=== PATIENT | female | born 1950 | race Asian ===

== ENCOUNTER 2016-08-23 12:34 | Emergency (ER) | payer MEDICARE, OTHER ==
[~2016-08-23] VITALS: Ht 157.5 cm; Wt 54.5 kg
[~2016-08-23 12:34] MED LIST: ALBU8.5H IH; AMLO5TAB66 PO; ASPI-556 PO; BECL8.7A5 IH; BENZ-26 PO; CIP250 PO; GLIP5TAB11 PO; GUAI600T PO; IPRAHFA IH; LORA5SOL46 PO; METF10002 PO; OMEP20 PO; PRAV20TA PO; PRED10TA3 PO; PRED20TA3 PO; PRED5TAB PO
[2016-08-23 12:47] LABS: GLUCOSE,POINT OF CARE 221 MG/DL (70-110)
[2016-08-23] MEDS ORDERED: MECLIZINE HCL 25 MG TABLET PO ONE (13:45)
[2016-08-23 14:00] LABS: BASOPHILS # (AUTO) 0.04 K/uL (0.00-0.20); BASOPHILS % (AUTO) 0.5 % (0.0-2.0); EOSINOPHILS # (AUTO) 0.13 K/uL (0.00-0.70); EOSINOPHILS % (AUTO) 1.66 % (1.0-6.0); HEMATOCRIT 41.3 % (36-46); HEMOGLOBIN 13.7 g/dL (12.0-16.0); LYMPHOCYTES # (AUTO) 2.9 K/uL (1.0-4.8); LYMPHOCYTES % (AUTO) 35.2 % (22.0-44.0); MEAN CORPUSCULAR HEMOGLOBIN 30.9 pg (26.0-34.0); MEAN CORPUSCULAR HGB CONC 33.2 G/dL (31.0-37.0); MEAN CORPUSCULAR VOLUME 93 fL (80-100); MONOCYTES # (AUTO) 0.6 K/uL (0.1-1.0); MONOCYTES % (AUTO) 7.3 % (2.0-9.0); NEUTROPHILS # (AUTO) 4.5 K/uL (1.8-7.7); NEUTROPHILS % (AUTO) 55.5 % (40.0-70.0); PLATELET COUNT (AUTO) 250 K/uL (150-450); RED BLOOD CELL COUNT(AUTO) 4.45 MIL/uL (4.00-5.20); WHITE BLOOD COUNT (AUTO) 8.1 K/uL (4.5-11.0)
[2016-08-23 14:12] LABS: ANION GAP 9 mmol/L (8-16); CARBON DIOXIDE 29 mmol/L (22-29); CHLORIDE 97 mmol/L (98-107); GLOMERULAR FILTR. RATE CALC 41 mL/min (>60); POTASSIUM 3.7 mmol/L (3.5-5.1); SODIUM SERUM 135 mmol/L (136-145); UREA NITROGEN, BLOOD 22 mg/dL (7-18)
[2016-08-23 14:30] LABS: B-TYPE NATRIURETIC PEPTIDE 19 pg/mL (0-100)
[2016-08-23 14:38] LABS: ALANINE AMINOTRANSFERASE 57 U/L (12-78); ALBUMIN 4.2 g/dL (3.4-5.0); ASPARTATE AMINOTRANSFERASE 44 U/L (15-37); BILIRUBIN,TOTAL 0.7 mg/dL (0.1-1.0); CREATINE KINASE MB 0.7 ng/mL (0-5); CREATINE KINASE, TOTAL 93 U/L (26-192); TOTAL PROTEIN, SERUM 7.9 g/dL (6.4-8.2)
[2016-08-23 14:42] LABS: PROTHROMBIN TIME 10.8 SEC (9.4-11.6)
[2016-08-23] MEDS ORDERED: SODIUM CHLORIDE 0.9% 1,000 ML IV ONE (14:45)
[2016-08-23] MEDS ORDERED: LORA10TA7 PO (14:48)
[2016-08-23 15:55] LABS: APPEARANCE,URINE CLEAR (CLEAR); GLUCOSE, URINE (UA) 100 mg/dL (NEGATIVE); KETONES,URINE NEGATIVE (NEGATIVE); LEUKOCYTE ESTERASE ,URINE SMALL (NEGATIVE); OCCULT BLOOD,URINE NEGATIVE (NEGATIVE); PROTEIN,URINE NEGATIVE (NEGATIVE)
[2016-08-23 16:05] LABS: ADD UA MICROSCOPIC YES
[2016-08-23 16:31] LABS: SQUAMOUS EPITHELIAL CELL,UR Few /LPF (None Seen)
[2016-08-23 16:34] LABS: RBC,URINE 0-2 /HPF (0-2); TRANSITIONAL EPI CELLS,URINE Few /LPF (None Seen)
[2016-08-23 17:12] VITALS: BP 122/61
== END 2016-08-23 17:16 | disposition home or self-care (01) ==
LOC: EMS 12:36
DX: R42 Dizziness and giddiness (principal); N39.0 Urinary tract infection, site not specified; E86.0 Dehydration; E11.9 Type 2 diabetes mellitus without complications; I10 Essential (primary) hypertension; J45.909 Unspecified asthma, uncomplicated; Z79.82 Long term (current) use of aspirin
CPT/HCPCS: 36415; 71010; 80053; 81001; 82550; 82553; 82962; 83880; 84484; 85025; 85610; 85730; 87077; 87086; 87186; 93005; 96360; 99285; J7030

== ENCOUNTER 2016-10-30 17:44 | Emergency (ER) | payer MEDICARE, OTHER ==
[~2016-10-30] VITALS: Ht 157.5 cm; Wt 75.0 kg
[~2016-10-30 17:44] MED LIST changes: -BENZ-26 PO; -CIP250 PO; -GUAI600T PO; +LORA10TA7 PO; -LORA5SOL46 PO; -PRED10TA3 PO; -PRED20TA3 PO; -PRED5TAB PO
[2016-10-30] MEDS ORDERED: MECLIZINE HCL 25 MG TABLET PO ONE (19:00)
[2016-10-30] MEDS ORDERED: IBUPROFEN 600 MG TABLET PO ONE (19:00)
[2016-10-30 19:02] LABS: GLUCOSE,POINT OF CARE 263 MG/DL (70-110)
[2016-10-30 19:17] LABS: BASOPHILS % (AUTO) 0.5 % (0.0-2.0); EOSINOPHILS % (AUTO) 2.9 % (1.0-6.0); HEMATOCRIT 40.2 % (36-46); HEMOGLOBIN 13.8 g/dL (12.0-16.0); LYMPHOCYTES # (AUTO) 2.8 K/uL (1.0-4.8); LYMPHOCYTES % (AUTO) 36.3 % (22.0-44.0); MEAN CORPUSCULAR HEMOGLOBIN 31.1 pg (26.0-34.0); MEAN CORPUSCULAR HGB CONC 34.3 G/dL (31.0-37.0); MEAN CORPUSCULAR VOLUME 91 fL (80-100); MONOCYTES # (AUTO) 0.8 K/uL (0.1-1.0); MONOCYTES % (AUTO) 10.4 % (2.0-9.0); NEUTROPHILS # (AUTO) 3.8 K/uL (1.8-7.7); NEUTROPHILS % (AUTO) 49.9 % (40.0-70.0); PLATELET COUNT (AUTO) 235 K/uL (150-450); RED BLOOD CELL COUNT(AUTO) 4.43 MIL/uL (4.00-5.20); RED CELL DISTRIBUTION WIDTH 12.6 % (11.5-14.5); WHITE BLOOD COUNT (AUTO) 7.7 K/uL (4.5-11.0)
[2016-10-30 19:37] LABS: CALCIUM, TOTAL 9.5 mg/dL (8.8-10.5); CREATININE 0.97 mg/dL (0.60-1.30); POTASSIUM 3.5 mmol/L (3.5-5.1)
[2016-10-30 21:30] VITALS: BP 128/77
== END 2016-10-30 21:47 | disposition home or self-care (01) ==
LOC: EMS 17:46
DX: E11.65 Type 2 diabetes mellitus with hyperglycemia (principal); J45.909 Unspecified asthma, uncomplicated; I10 Essential (primary) hypertension; Z79.82 Long term (current) use of aspirin
CPT/HCPCS: 70450; 82962; 99285

== ENCOUNTER 2018-02-02 08:37 | Emergency (ER) | payer MEDICARE, OTHER ==
[~2018-02-02] VITALS: Ht 154.9 cm; Wt 61.4 kg
[~2018-02-02 08:37] MED LIST changes: -ALBU8.5H IH; +ALBU8.5H8 IH; +METF-446 PO; -METF10002 PO
[2018-02-02] MEDS ORDERED: GLIP10 PO (09:03)
[2018-02-02] MEDS ORDERED: LINA5TAB PO (09:03)
[2018-02-02] MEDS ORDERED: ATOR20TA86 PO (09:03)
[2018-02-02] MEDS ORDERED: METF-445 PO (09:03)
[2018-02-02 09:08] LABS: GLUCOSE,POINT OF CARE 241 MG/DL (70-110)
[2018-02-02] MEDS ORDERED: ALBUTEROL SULFATE 5 MG/ML 20 ML NEB SOLN [BULK] NEB ONE (09:15)
[2018-02-02] MEDS ORDERED: IPRATROPIUM BROMIDE 0.5 MG/2.5 ML NEB SOLUTION NEB ONE (09:15)
[2018-02-02] MEDS ORDERED: PredniSONE 20 MG TABLET PO ONE (09:15)
[2018-02-02] MEDS ORDERED: 0.9% SODIUM CHLORIDE 5 ML NEB SOLUTION NEB ONE (09:40)
[2018-02-02 10:38] VITALS: BP 143/73
== END 2018-02-02 11:09 | disposition home or self-care (01) ==
LOC: EMS 08:42
DX: J45.909 Unspecified asthma, uncomplicated (principal); E11.9 Type 2 diabetes mellitus without complications; I10 Essential (primary) hypertension; Z79.84 Long term (current) use of oral hypoglycemic drugs
CPT/HCPCS: 71045; 82962; 94640; 99283; J7512; 94644

== ENCOUNTER 2018-07-18 08:02 | Emergency (ER) | payer MEDICARE, OTHER ==
[~2018-07-18] VITALS: Ht 152.4 cm; Wt 56.8 kg
[~2018-07-18 08:02] MED LIST changes: -ALBU8.5H8 IH; -AMLO5TAB66 PO; -ASPI-556 PO; +ATOR20TA86 PO; -BECL8.7A5 IH; +GLIP10 PO; -GLIP5TAB11 PO; -IPRAHFA IH; +LINA5TAB PO; -LORA10TA7 PO; +METF-445 PO; -METF-446 PO; -OMEP20 PO; -PRAV20TA PO
[2018-07-18 08:44] LABS: GLUCOSE,POINT OF CARE 283 MG/DL (70-110)
[2018-07-18 10:13] LABS: BASOPHILS % (AUTO) 0.5 % (0.0-2.0); EOSINOPHILS % (AUTO) 2.2 % (1.0-6.0); HEMATOCRIT 41.8 % (36-46); HEMOGLOBIN 13.7 g/dL (12.0-16.0); LYMPHOCYTES # (AUTO) 2.3 K/uL (1.0-4.8); MEAN CORPUSCULAR HEMOGLOBIN 30.3 pg (26.0-34.0); MEAN CORPUSCULAR HGB CONC 32.9 G/dL (31.0-37.0); MEAN CORPUSCULAR VOLUME 92 fL (80-100); MONOCYTES # (AUTO) 0.7 K/uL (0.1-1.0); MONOCYTES % (AUTO) 7.7 % (2.0-9.0); NEUTROPHILS # (AUTO) 5.8 K/uL (1.8-7.7); NEUTROPHILS % (AUTO) 64.6 % (40.0-70.0); PLATELET COUNT (AUTO) 302 K/uL (150-450); RED BLOOD CELL COUNT(AUTO) 4.53 MIL/uL (4.00-5.20); RED CELL DISTRIBUTION WIDTH 13.1 % (11.5-14.5)
[2018-07-18 10:33] LABS: CALCIUM, TOTAL 9.7 mg/dL (8.8-10.5); CREATININE 1.01 mg/dL (0.60-1.30); POTASSIUM 3.7 mmol/L (3.5-5.1)
[2018-07-18 10:39] LABS: ALBUMIN 3.8 g/dL (3.4-5.0); BILIRUBIN,TOTAL 0.6 mg/dL (0.1-1.0); TOTAL PROTEIN, SERUM 8.4 g/dL (6.4-8.2)
[2018-07-18] MEDS ORDERED: ALBUTEROL SULFATE HFA 90 MCG/PUFF 8 GM INHALER IH ONE (11:15)
[2018-07-18] MEDS ORDERED: BENZONATATE 100 MG CAPSULE PO ONE (11:15)
[2018-07-18] MEDS ORDERED: FLUTICASONE PROPIONATE 50 MCG/SPRAY 16 GM NASAL SPRAY NASAL ONE (11:15)
[2018-07-18] MEDS ORDERED: ACETAMINOPHEN 500 MG TABLET PO ONE (11:15)
[2018-07-18 11:29] VITALS: BP 157/90
== END 2018-07-18 12:20 | disposition home or self-care (01) ==
LOC: EMS 08:06
DX: J40 Bronchitis, not specified as acute or chronic (principal); I10 Essential (primary) hypertension; E11.9 Type 2 diabetes mellitus without complications; Z79.84 Long term (current) use of oral hypoglycemic drugs
CPT/HCPCS: 93005; 94640; J3535